=== PATIENT | female | born 1985 | race Caucasian/White ===

== ENCOUNTER → 2016-12-29 | Outpatient (CLI) | payer OTHER ==
[~2016-12-29] MED LIST: DICY20TA10 PO; IRON28TA PO; TAB-TAB PO
[2016-12-29 18:57] LABS: CHLAMYDIA PCR NOT DETECTED (NOT DETECT); NEISSERIA PCR NOT DETECTED (NOT DETECT)
[2016-12-30 10:18] LABS: RAPID PLASMA REAGIN SCREEN NON-REACTIVE (NON-REACTVE)
== END ==
LOC: CLAB 15:40
PROVIDERS: ATTEND Obstetrics & Gynecology
DX: Z11.3 Encounter for screening for infections with a predominantly sexual mode of transmission (principal)
CPT/HCPCS: 36415; 86592; 87340; 87491; 87591

== ENCOUNTER → 2017-02-02 | Outpatient (CLI) | payer OTHER ==
[2017-02-02 10:24] LABS: AUTOMATED NEUTROPHIL # 6.6 TH/MM3 (1.8-7.7); BASOPHIL % 0.4 % (0.0-2.0); EOSINOPHIL # 0.3 TH/MM3 (0-0.4); EOSINOPHIL % 2.7 % (0.0-4.0); HEMATOCRIT 39.4 % (35.0-46.0); HEMO FLAGS DIFF FINAL; LYMPH % 23.3 % (9.0-44.0); LYMPHOCYTE # 2.3 TH/MM3 (1.0-4.8); MEAN CORPUSCULAR HEMOGLOBIN 28.3 PG (27.0-34.0); MONO % 7.4 % (0.0-8.0); NEUT % 66.2 % (16.0-70.0); PLATELET COUNT 233 TH/MM3 (150-450); RED BLOOD COUNT 4.74 MIL/MM3 (4.00-5.30); RED CELL DISTRIBUTION WIDTH 13.1 % (11.6-17.2)
[2017-02-02 10:53] LABS: ALT (GPT) 45 U/L (10-53); ANION GAP 7 MEQ/L (5-15); AST (GOT) 30 U/L (15-37); BICARBONATE 28.4 MEQ/L (21.0-32.0); BLOOD UREA NITROGEN 12 MG/DL (7-18); CHLORIDE 105 MEQ/L (98-107); GLOMERULAR FILTRATION RATE 81 ML/MIN (>89); GLUCOSE,FASTING 88 MG/DL (74-99); POTASSIUM 4.1 MEQ/L (3.5-5.1); SODIUM (NA) 140 MEQ/L (136-145)
[2017-02-02 10:56] LABS: ALKALINE PHOSPHATASE 72 U/L (45-117); HDL CHOLESTEROL 75.1 MG/DL (40.0-60.0); LDL CHOLESTEROL 80 MG/DL (0-99); TOTAL BILIRUBIN ADULT 0.3 MG/DL (0.2-1.0)
== END ==
LOC: CLAB 09:53
PROVIDERS: ATTEND Family Medicine
DX: R07.9 Chest pain, unspecified (principal); R93.2 Abnormal findings on diagnostic imaging of liver and biliary tract; Z82.49 Family history of ischemic heart disease and other diseases of the circulatory system
CPT/HCPCS: 36415; 80053; 80061; 85025

== ENCOUNTER 2017-02-09 18:33 | Emergency (ER) | payer OTHER ==
[~2017-02-09] VITALS: Ht 154.9 cm; Wt 92.0 kg
[2017-02-09 18:35] VITALS: BP 146/93; PULSE 89; RESP 20; TEMP 98.1; O2SAT 99
--- NOTE | 2017-02-10 10:07 | EKG ---
Date Performed: 02/09/2017 Time Performed: 19:58:18 PTAGE: 31 years EKG: Sinus rhythm NORMAL ECG PREVIOUS TRACING : 03/26/2016 15.36 DOCTOR: Jose Rueda Interpretating Date/Time 02/10/2017 10:05:55
== END 2017-02-09 20:00 | disposition left against medical advice (07) ==
LOC: NED 20:00
DX: Z53.21 Procedure and treatment not carried out due to patient leaving prior to being seen by health care provider (principal)
CPT/HCPCS: 93005; 99281

== ENCOUNTER 2017-02-10 10:27 | Observation (INO) | payer OTHER ==
[2017-02-10] VITALS (15 sets, daily range): BP systolic 118–154; BP diastolic 63–101; PULSE 54–80; RESP 14–18; TEMP 97.4–98; O2SAT 97–100
[~2017-02-10] VITALS: Ht 154.9 cm; Wt 90.7 kg
[2017-02-10] MEDS ORDERED: SODIUM CHLOR 0.9% 1000 ML INJ 1,000 ML IV ONE (11:16)
--- NOTE | 2017-02-10 11:21 | PD ---
HPI Chief Complaint: Syncope/Near-Syncope Time Seen by Provider: 11:04 Travel History International Travel<30 days: No Contact w/Intl Traveler<30days: No Traveled to known affect area: No History of Present Illness HPI This is a 31-year-old female with a history of polycystic ovarian syndrome, and presents today with complaints of near syncopal episodes times several days. The patient has had previous hypotensive episodes in the past and was told that she had low blood pressure. She states that over the last several days she's had episodes where she becomes severely lightheaded and nearly passes out. She states it happened 3 times while [address] home yesterday. She states that she came here last night however the waiting room was full she went home. She again woke up this morning and had another episode. She denies any complete passing out she denies any chest pain chest pressure. She does state that she gets and intermittent headaches. The patient also reports right sided flank pain with radiation to her right groin intermittently. She reports it as a sharp and stabbing pain. She also gives history that she's had kidney stones on the right as well. No other complaints time of my examination. PFSH Past Medical History Asthma: Yes ( A CHILD) Cancer: No Cardiovascular Problems: Yes (MURMUR) Diabetes: No Diminished Hearing: No Endocrine: No Gastrointestinal Disorders: Yes (IBS) Genitourinary: Yes (kidney stones) Hepatitis: No Hiatal Hernia: No Immune Disorder: No Musculoskeletal: Yes (lower spine herniated spine) Neurologic: No Psychiatric: No Reproductive: Yes (irregular periods) Respiratory: Yes (asthma) Thyroid Disease: No Tetanus Vaccination: Unknown Influenza Vaccination: Yes ?: Unknown LMP: UNKNOWN : 1 Para: 1 Miscarriage: 0 : 0 Past Surgical History AICD: No Joint Replacement: No Pacemaker: No Social History Alcohol Use: Yes (occassionally ) Tobacco Use: No Substance Use: No Allergies-Medications (Allergen,Severity, Reaction): Coded Allergies: Amoxicillin (Verified Allergy, Intermediate, Rash, 02/09/17) Penicillin (Verified Allergy, Mild, RASH, 02/09/17) CILLIN FAMILY Sulfa (Verified Adverse Reaction, Intermediate, Nausea/Vomiting, 02/09/17) CAN TAKE WITH ZOFRAN pt states that sulfa is ok Reported Meds & Prescriptions Reported Meds & Active Scripts Active Reported Iron (Ferrous Sulfate) 28 Mg Tab 65 Mg PO DAILY Multivitamin (Multivitamins) 1 Tab Tab 1 Tab PO DAILY Dicyclomine 20 mg (Dicyclomine HCl) 20 Mg Tab 20 Mg PO QID Review of Systems Except as stated in HPI: all other systems reviewed are Neg General / Constitutional: No: Fever, Chills HENT: Positive: Lightheadedness, No: Headaches, Neck Pain Cardiovascular: Positive: Palpitations, No: Chest Pain or Discomfort Respiratory: No: Cough, Shortness of Breath Gastrointestinal: No: Nausea, Vomiting Genitourinary: No: Urgency, Frequency, Dysuria Musculoskeletal: Positive: Weakness (generalized) Neurologic: Positive: Weakness (Gen.), Other (near syncope), No: Dizziness Physical Exam Narrative GENERAL: Well-nourished, well-developed patient. SKIN: Warm and dry. HEAD: Normocephalic/atraumatic. EYES: No scleral icterus. No injection or drainage. NECK: Supple, trachea midline. CARDIOVASCULAR: Regular rate and rhythm without murmurs, gallops, or rubs. RESPIRATORY: Breath sounds equal bilaterally. No accessory muscle use. GASTROINTESTINAL: Abdomen soft, non-tender, nondistended. MUSCULOSKELETAL: No cyanosis, or edema. NEUROLOGICAL: Awake and alert. Cranial nerves II through XII intact. Motor grossly within normal limits. Five out of 5 muscle strength in all muscle groups. Normal speech. Data Data Last Documented VS Vital Signs Date Time Temp Pulse Resp B/P Pulse Ox O2 Delivery O2 Flow Rate FiO2 02/10/17 11:31 99 Room Air 02/10/17 10:44 80 18 128/101 02/10/17 10:28 97.4 Orders Electrocardiogram (02/10/17 ) Complete Blood Count With Diff (02/10/17 11:16) Comprehensive Metabolic Panel (02/10/17 11:16) Urinalysis - C+S If Indicated (02/10/17 11:16) Chest, Single Ap (02/10/17 11:16) Ct Brain W/O Iv Contrast(Rout) (02/10/17 11:16) Ecg Monitoring (02/10/17 11:16) Iv Access Insert/Monitor (02/10/17 11:16) Oximetry (02/10/17 11:16) Sodium Chloride 0.9% Flush (Ns Flush) (02/10/17 11:30) Sodium Chlor 0.9% 1000 Ml Inj (Ns 1000 M (02/10/17 11:16) Admit Order (Ed Use Only) (02/10/17 15:41) Labs Laboratory Tests Test 02/10/17 11:15 White Blood Count 9.0 TH/MM3 Red Blood Count 4.94 MIL/MM3 Hemoglobin 14.1 GM/DL Hematocrit 41.4 % Mean Corpuscular Volume 83.8 FL Mean Corpuscular Hemoglobin 28.6 PG Mean Corpuscular Hemoglobin 34.1 % Concent Red Cell Distribution Width 13.5 % Platelet Count 238 TH/MM3 Mean Platelet Volume 9.3 FL Neutrophils (%) (Auto) 63.9 % Lymphocytes (%) (Auto) 24.2 % Monocytes (%) (Auto) 8.4 % Eosinophils (%) (Auto) 3.1 % Basophils (%) (Auto) 0.4 % Neutrophils # (Auto) 5.8 TH/MM3 Lymphocytes # (Auto) 2.2 TH/MM3 Monocytes # (Auto) 0.8 TH/MM3 Eosinophils # (Auto) 0.3 TH/MM3 Basophils # (Auto) 0.0 TH/MM3 CBC Comment DIFF FINAL Differential Comment Urine Color YELLOW Urine Turbidity HAZY Urine pH 5.5 Urine Specific [place] 1.024 Urine Protein TRACE mg/dL Urine Glucose (UA) NEG mg/dL Urine Ketones TRACE mg/dL Urine Occult Blood NEG Urine Nitrite NEG Urine Bilirubin NEG Urine Urobilinogen LESS THAN 2.0 MG/DL Urine Leukocyte Esterase LARGE Urine RBC 2 /hpf Urine WBC 5 /hpf Urine Squamous Epithelial 5 /hpf Cells Urine Bacteria FEW /hpf Urine Mucus FEW /lpf Microscopic Urinalysis Comment CULT NOT INDICATED Sodium Level 142 MEQ/L Potassium Level 3.7 MEQ/L Chloride Level 107 MEQ/L Carbon Dioxide Level 26.2 MEQ/L Anion Gap 9 MEQ/L Blood Urea Nitrogen 10 MG/DL Creatinine 0.85 MG/DL Estimat Glomerular Filtration 79 ML/MIN Rate Random Glucose 78 MG/DL Calcium Level 9.1 MG/DL Total Bilirubin 0.4 MG/DL Aspartate Amino Transf 31 U/L (AST/SGOT) Alanine Aminotransferase 53 U/L (ALT/SGPT) Alkaline Phosphatase 74 U/L Total Protein 7.9 GM/DL Albumin 3.7 GM/DL MDM Medical Decision Making Medical Screen Exam Complete: Yes Emergency Medical Condition: Yes Differential Diagnosis Atypical migraine versus vasovagal syncope/presyncope versus pseudotumor cerebri Narrative Course 31-year-old female with history of polycystic ovarian syndrome, presents today with complaints of dizziness and blurry vision with multiple episodes of near- syncope. The patient has had several in the last 2 days. The patient had a history of hypotension in the past however according to her her blood pressure never dropped below 100 systolic. The patient's workup is essentially negative here. Given her multiple frequent episodes and no obvious findings or causes, I feel she should be admitted under observation placed on telemetry and have a neurology consult. She does state that she has blurry vision and mild headache. The case was discussed with Dr. Maddox, [facility] , who is agreed to put the patient under observation under her service. Diagnosis Primary Impression: near syncope/presyncope. Additional Impression: Polycystic ovarian syndrome Fei Packer MD Feb 10, 2017 11:21
[2017-02-10] MEDS ORDERED: SODIUM CHLORIDE 0.9% FLUSH 5 ML FLUSH IVF PRN (11:30)
[2017-02-10 11:45] LABS: AUTOMATED NEUTROPHIL # 5.8 TH/MM3 (1.8-7.7); BASOPHIL % 0.4 % (0.0-2.0); EOSINOPHIL # 0.3 TH/MM3 (0-0.4); EOSINOPHIL % 3.1 % (0.0-4.0); HEMATOCRIT 41.4 % (35.0-46.0); HEMO FLAGS DIFF FINAL; LYMPH % 24.2 % (9.0-44.0); LYMPHOCYTE # 2.2 TH/MM3 (1.0-4.8); MEAN CELL VOLUME 83.8 FL (80.0-100.0); MEAN CORPUSCULAR HEMOGLOBIN 28.6 PG (27.0-34.0); MEAN CORPUSCULAR HGB CONC 34.1 % (32.0-36.0); MONO % 8.4 % (0.0-8.0); NEUT % 63.9 % (16.0-70.0); PLATELET COUNT 238 TH/MM3 (150-450); RED BLOOD COUNT 4.94 MIL/MM3 (4.00-5.30); RED CELL DISTRIBUTION WIDTH 13.5 % (11.6-17.2)
[2017-02-10 12:01] LABS: BACTERIA, URINE FEW /hpf; BLOOD, URINE NEG (NEG); COMMENT (UR) CULT NOT INDICATED; CULTURE IF INDICATED CULT NOT INDICATED; GLUCOSE,URINE NEG (NEG); KETONE, URINE TRACE mg/dL (NEG); MUCUS URINE FEW /lpf (OCC); NITRITE,URINE NEG (NEG); PH, URINE 5.5 (5.0-8.5); SQUAMOUS EPITHELIAL CELL URINE 5 /hpf (0-5); URINE COLOR YELLOW (YELLW/STRAW)
--- NOTE | 2017-02-10 12:06 | EKG ---
Date Performed: 02/10/2017 Time Performed: 10:57:20 PTAGE: 31 years EKG: Sinus rhythm MODERATE VOLTAGE CRITERIA FOR LVH, CONSIDER NORMAL VARIANT BORDERLINE ECG PREVIOUS TRACING : 02/09/2017 19.58 DOCTOR: Jose Rueda Interpretating Date/Time 02/10/2017 12:05:22
[2017-02-10 12:11] LABS: ANION GAP 9 MEQ/L (5-15); AST (GOT) 31 U/L (15-37); BICARBONATE 26.2 MEQ/L (21.0-32.0); BLOOD UREA NITROGEN 10 MG/DL (7-18); CHLORIDE 107 MEQ/L (98-107); GLOMERULAR FILTRATION RATE 79 ML/MIN (>89); POTASSIUM 3.7 MEQ/L (3.5-5.1); SODIUM (NA) 142 MEQ/L (136-145)
[2017-02-10 12:14] LABS: ALKALINE PHOSPHATASE 74 U/L (45-117); ALT (GPT) 53 U/L (10-53); TOTAL BILIRUBIN ADULT 0.4 MG/DL (0.2-1.0)
--- NOTE | 2017-02-10 12:19 | RADRPT ---
EXAM DATE/TIME: 02/10/2017 11:28 [facility] COMPARISON: CHEST SINGLE AP, March 20, 2016, 15:59. INDICATIONS : Patient has had syncopal episodes for a week. She also states she has abdomen and lower back pain for four days. MEDICAL HISTORY : None. SURGICAL HISTORY : None. ENCOUNTER: Initial ACUITY: 1 week PAIN SCORE: 4/10 LOCATION: Bilateral L-spine. FINDINGS: A single view of the chest demonstrates the lungs to be symmetrically aerated without evidence of mas s, infiltrate or effusion. The cardiomediastinal contours are unremarkable. Osseous structures are intact. CONCLUSION: No acute disease. Casimiro Greene MD on February 10, 2017 at 12:17 Board Certified Radiologist. This report was verified electronically.
--- NOTE | 2017-02-10 14:05 | RADRPT ---
EXAM DATE/TIME: 02/10/2017 13:51 [facility] COMPARISON: CT BRAIN W/O CONTRAST, March 20, 2016, 15:50. INDICATIONS : Patient states she blacked out 3 times in 4 days RADIATION DOSE: 56.35 CTDIvol (mGy) MEDICAL HISTORY : Cardiovascular disease. Hypertension. SURGICAL HISTORY : None. ENCOUNTER: Initial ACUITY: 1 day PAIN SCALE: 3/10 LOCATION: cranial TECHNIQUE: Multiple contiguous axial images were obtained of the head. Using automated exposure control and adj ustment of the mA and/or kV according to patient size, radiation dose was kept as low as reasonably a chievable to obtain optimal diagnostic quality images. FINDINGS: CEREBRUM: The ventricles are normal for age. No evidence of midline shift, mass lesion, hemorrhage or acute in farction. No extra-axial fluid collections are seen. POSTERIOR FOSSA: The cerebellum and brainstem are intact. The 4th ventricle is midline. The cerebellopontine angle i s unremarkable. EXTRACRANIAL: The visualized portion of the orbits is intact. SKULL: The calvaria is intact. No evidence of skull fracture. CONCLUSION: No acute disease. Casimiro Greene MD on February 10, 2017 at 14:03 Board Certified Radiologist. This report was verified electronically.
[2017-02-10] MEDS ORDERED: SODIUM CHLOR 0.9% 1000 ML INJ 1,000 ML IV SCH (16:07)
[2017-02-10] MEDS ORDERED: NALOXONE HCL 0.4 MG/ML AMP IV PRN (16:15)
[2017-02-10] MEDS ORDERED: TEMAZEPAM 7.5 MG CAP PO PRN (16:15)
[2017-02-10] MEDS ORDERED: SODIUM CHLORIDE 0.9% FLUSH 10 ML FLUSH IV FLUSH PRN (16:15)
--- NOTE | 2017-02-10 16:31 | HHI.HP ---
HPI Service [facility] Primary Care Physician Sukhi Lea MD Admission Diagnosis near syncope, headach, polycystic ovarian disease Diagnoses: Chief Complaint: Near Syncope episodes Travel History International Travel<30 Days: No Contact w/Intl Traveler <30 Da: No Traveled to Known Affected Are: No History of Present Illness This 31-year-old female patient with a past medical history which includes polycystic ovarian syndrome, hypotension, childhood asthma, irritable bowel syndrome and kidney stones. Patient was seen by her primary care provider last or Thursday for follow-up of, "fatty liver," as well as evaluation of vague intermittent chest pressure. Patient reports that a week prior to her doctor's appointment she had had episodes of chest pressure not associated with exertion shortness of breath diaphoresis. Chest pressure lasting seconds to minutes described as sharp in nature. Per patient she was told to follow up with cardiology as outpatient. Patient reports that starting Thursday she has had 3 episodes of, "blacking out, " patient elaborates as near syncopal episodes described as blurry vision associated with anxiety, nausea and heart pounding. Patient reports she is usually sitting during these episodes has occurred both at rest and while driving. Patient was able to pull her car to the side of the road and the episodes resolve after, "a few minutes," with rest. Patient denies loss of consciousness, tongue biting, loss of bowel or bladder control during these episodes. Patient reports she had an EKG in her primary care provider's office which showed sinus arrhythmia. EKG revealed here reviewed and reveals sinus rhythm heart rate 69. Patient reports her last menstrual period was 3 months ago she sees Dr. Antunez [employer] [facility] for her polycystic ovarian syndrome does have to take occasionally take progesterone for induction of menses. 1 para 1, urine bedside hCG negative. Review of Systems Except as stated in HPI: all other systems reviewed are Neg Past Family Social History Past Medical History polycystic ovarian syndrome, hypotension, childhood asthma, irritable bowel syndrome and kidney stones. Past Surgical History Colonoscopy Reported Medications Iron (Ferrous Sulfate) 28 Mg Tab 65 Mg PO DAILY Multivitamin (Multivitamins) 1 Tab Tab 1 Tab PO DAILY Dicyclomine 20 mg (Dicyclomine HCl) 20 Mg Tab 20 Mg PO QID Allergies: Coded Allergies: Amoxicillin (Verified Allergy, Intermediate, Rash, 02/09/17) Penicillin (Verified Allergy, Mild, RASH, 02/09/17) CILLIN FAMILY Sulfa (Verified Adverse Reaction, Intermediate, Nausea/Vomiting, 02/09/17) CAN TAKE WITH ZOFRAN pt states that sulfa is ok Active Ordered Medications Current Medications Medications (Trade) Dose Ordered Sig/Page Route Start Time Stop Time Status Last Admin (NS Flush) 2 ml UNSCH PRN IVF 02/10/17 11:30 02/10/17 11:31 Family History Mother secondary to pancreatic and liver CA Father has history of CAD LA and coronary artery bypass graft Social History Rare EtOH use denies tobacco use or illicit drug use Physical Exam Vital Signs Vital Signs Date Time Temp Pulse Resp B/P Pulse Ox O2 Delivery O2 Flow Rate FiO2 02/10/17 14:00 80 18 154/87 99 Room Air 02/10/17 12:00 70 18 139/77 100 Room Air 02/10/17 11:31 99 Room Air 02/10/17 10:44 80 18 128/101 100 Room Air 02/10/17 10:44 18 97 Room Air 02/10/17 10:28 97.4 67 16 154/91 99 Room Air Physical Exam GENERAL: This is an obese 31-year-old female patient anxious in appearance but in no acute distress. SKIN: No rashes, ecchymoses or lesions. Cool and dry. HEAD: Atraumatic. Normocephalic. No temporal or scalp tenderness. EYES: Pupils equal round and reactive. Extraocular motions intact. No scleral icterus. No injection or drainage. ENT: Nose without bleeding, purulent drainage or septal hematoma. Throat without erythema, tonsillar hypertrophy or exudate. Uvula midline. Airway patent. NECK: Trachea midline. No JVD or lymphadenopathy. Supple, nontender, no meningeal signs. CARDIOVASCULAR: Regular rate and rhythm without murmurs, gallops, or rubs. RESPIRATORY: Clear to auscultation. Breath sounds equal bilaterally. No wheezes , rales, or rhonchi. GASTROINTESTINAL: Abdomen soft, non-tender, nondistended. No guarding. MUSCULOSKELETAL: Extremities without clubbing, cyanosis, or edema. No joint tenderness, effusion, or edema noted. No calf tenderness. Negative Homans sign bilaterally. NEUROLOGICAL: Awake and alert. No focal deficits appreciated. Motor and sensory grossly within normal limits. Five out of 5 muscle strength in all muscle groups. Normal speech. Laboratory Laboratory Tests Test 02/10/17 11:15 White Blood Count 9.0 Red Blood Count 4.94 Hemoglobin 14.1 Hematocrit 41.4 Mean Corpuscular Volume 83.8 Mean Corpuscular Hemoglobin 28.6 Mean Corpuscular Hemoglobin 34.1 Concent Red Cell Distribution Width 13.5 Platelet Count 238 Mean Platelet Volume 9.3 Neutrophils (%) (Auto) 63.9 Lymphocytes (%) (Auto) 24.2 Monocytes (%) (Auto) 8.4 Eosinophils (%) (Auto) 3.1 Basophils (%) (Auto) 0.4 Neutrophils # (Auto) 5.8 Lymphocytes # (Auto) 2.2 Monocytes # (Auto) 0.8 Eosinophils # (Auto) 0.3 Basophils # (Auto) 0.0 CBC Comment DIFF FINAL Differential Comment Urine Color YELLOW Urine Turbidity HAZY Urine pH 5.5 Urine Specific [place] 1.024 Urine Protein TRACE Urine Glucose (UA) NEG Urine Ketones TRACE Urine Occult Blood NEG Urine Nitrite NEG Urine Bilirubin NEG Urine Urobilinogen LESS THAN 2.0 Urine Leukocyte Esterase LARGE Urine RBC 2 Urine WBC 5 Urine Squamous Epithelial 5 Cells Urine Bacteria FEW Urine Mucus FEW Microscopic Urinalysis Comment CULT NOT INDICATED Sodium Level 142 Potassium Level 3.7 Chloride Level 107 Carbon Dioxide Level 26.2 Anion Gap 9 Blood Urea Nitrogen 10 Creatinine 0.85 Estimat Glomerular Filtration 79 Rate Random Glucose 78 Calcium Level 9.1 Total Bilirubin 0.4 Aspartate Amino Transf 31 (AST/SGOT) Alanine Aminotransferase 53 (ALT/SGPT) Alkaline Phosphatase 74 Total Protein 7.9 Albumin 3.7 Result Diagram: 02/10/17 1115 02/10/17 1115 Imaging Last Impressions Head CT 02/10/17 1116 Signed Impressions: Service Date/Time: Friday, February 10, 2017 13:51 - CONCLUSION: No acute disease. Casimiro Greene MD Chest X-Ray 02/10/17 1116 Signed Impressions: Service Date/Time: Friday, February 10, 2017 11:28 - CONCLUSION: No acute disease. Casimiro Greene MD Assessment and Plan Problem List: (1) Near syncope ICD Code: R55 Status: Acute (2) Chest pain ICD Code: R07.9 Status: Acute Assessment and Plan This 31-year-old female patient with a past medical history which includes polycystic ovarian syndrome, hypotension, childhood asthma, irritable bowel syndrome and kidney stones. Recurrent near near-syncope: Anxiety vs cardiac vs seizure vs hypotension Orthostatic vital signs Continuous telemetry monitoring 24-hour Holter monitor Ultrasound bilateral carotid arteries CT the head reviewed by myself as well as Dr. Maddox in no acute disease process EEG 2-D echocardiogram Chest pain: Atypical Initial EKG reviewed by myself as well as Dr. Maddox sinus rhythm heart rate [address] changes Repeat EKG in a.m. Serial troponin 3 History of kidney stones- no urinary symptoms Admitted overnight for further observation and monitoring Repeat CBC BMP in a.m., also check TSH DVT prophylaxis JULIAN yesenia and SCDs Written by Lorena Baer, acting as scribe for Dr. Maddox on 02/10/17 at 16:28. Lorena Baer Feb 10, 2017 16:31 Nguyễn Maddox MD Feb 11, 2017 07:59
[2017-02-10] MEDS: DICYCLOMINE HCL 20 MG TAB PO SCH ×2 (17:56→21:00)
--- NOTE | 2017-02-10 18:16 | RADRPT ---
EXAM DATE/TIME: 02/10/2017 17:11 [facility] COMPARISON: No previous studies available for comparison. INDICATIONS : Syncope. Blurred vision. MEDICAL HISTORY : Hypertension. Irritable bowel syndrome. Renal calculi. Heart murmur. Asthma. Irregular periods. Polyc ystic ovarian syndrome. Herniated lower spine. Anemia. SURGICAL HISTORY : Colonoscopy. ENCOUNTER: Initial ACUITY: 1 week PAIN SCORE: 3/10 LOCATION: Bilateral neck PEAK SYSTOLIC VELOCITIES (cm/sec): ICA/CCA RATIO: Right: 0.8 Left: 0.5 ICA: Right: 88 Left: 88 CCA: Right: 111 Left: 169 ECA: Right: 74 Left: 71 VERTEBRAL: Right: 62 antegrade Left: 67 antegrade Elevated flow velocities and ICA/CCA ratios have been found to correlate with increased degrees of vessel stenosis, calculated as percentage of diameter relative to a normal segment of distal ICA/CCA FINDINGS: Antegrade flow is seen in both vertebral arteries. No significant atherosclerotic plaquing is identi fied. CONCLUSION: No evidence for hemodynamically significant stenosis. Jaja Villasenor MD on February 10, 2017 at 18:14 Board Certified Radiologist. This report was verified electronically.
[2017-02-10] MEDS: ONDANSETRON HCL 4 MG/2 ML VIAL IVP PRN (20:35)
[2017-02-10] MEDS: ACETAMINOPHEN 325 MG TAB PO PRN (20:35)
[2017-02-10] MEDS: SODIUM CHLORIDE 0.9% FLUSH 10 ML FLUSH IV FLUSH SCH (21:00)
[2017-02-11] VITALS (28 sets, daily range): BP systolic 110–126; BP diastolic 67–79; PULSE 44–89; RESP 14–20; TEMP 97.8–98.8; O2SAT 95–98
[2017-02-11 05:25] LABS: BASOPHIL % 0.3 % (0.0-2.0); EOSINOPHIL # 0.3 TH/MM3 (0-0.4); EOSINOPHIL % 4.1 % (0.0-4.0); HEMATOCRIT 38.2 % (35.0-46.0); HEMO FLAGS DIFF FINAL; LYMPH % 38.6 % (9.0-44.0); LYMPHOCYTE # 3.2 TH/MM3 (1.0-4.8); MEAN CELL VOLUME 83.6 FL (80.0-100.0); MEAN CORPUSCULAR HEMOGLOBIN 28.8 PG (27.0-34.0); MEAN CORPUSCULAR HGB CONC 34.4 % (32.0-36.0); MONO % 9.3 % (0.0-8.0); NEUT % 47.7 % (16.0-70.0); PLATELET COUNT 228 TH/MM3 (150-450); RED BLOOD COUNT 4.57 MIL/MM3 (4.00-5.30); RED CELL DISTRIBUTION WIDTH 13.6 % (11.6-17.2); WHITE BLOOD COUNT 8.4 TH/MM3 (4.0-11.0)
[2017-02-11 05:51] LABS: ANION GAP 7 MEQ/L (5-15); BICARBONATE 28.4 MEQ/L (21.0-32.0); BLOOD UREA NITROGEN 10 MG/DL (7-18); CHLORIDE 106 MEQ/L (98-107); GLOMERULAR FILTRATION RATE 80 ML/MIN (>89); POTASSIUM 3.7 MEQ/L (3.5-5.1); SODIUM (NA) 141 MEQ/L (136-145)
--- NOTE | 2017-02-11 07:51 | HHI.PR ---
Subjective Remarks no acute events overnight telemetry- sinus rhythm- when sleeping- rate down to 40s- sinus patient states right lower abdominal discomfort on and off no dysruia no changes in menstrual cycles, no BM changes Objective Vitals Vital Signs Date Time Temp Pulse Resp B/P Pulse Ox O2 Delivery O2 Flow Rate FiO2 02/11/17 06:02 44 02/11/17 06:00 48 02/11/17 05:00 60 02/11/17 04:45 53 14 114/70 96 02/11/17 04:00 53 02/11/17 03:00 52 02/11/17 02:00 54 02/11/17 01:00 50 02/11/17 00:00 98.1 89 14 110/67 95 02/11/17 00:00 59 02/10/17 23:00 60 02/10/17 22:00 54 02/10/17 21:00 56 02/10/17 20:00 59 02/10/17 19:57 98.0 69 14 118/77 97 02/10/17 18:00 78 18 142/78 100 Room Air 02/10/17 17:04 77 18 142/78 02/10/17 17:03 75 18 130/63 02/10/17 17:03 74 18 133/74 02/10/17 16:14 99 21 02/10/17 16:00 66 18 130/63 99 Room Air 02/10/17 14:00 80 18 154/87 99 Room Air 02/10/17 12:00 70 18 139/77 100 Room Air 02/10/17 11:31 99 Room Air 02/10/17 10:44 80 18 128/101 100 Room Air 02/10/17 10:44 18 97 Room Air 02/10/17 10:28 97.4 67 16 154/91 99 Room Air I/O 02/10/17 02/10/17 02/10/17 02/11/17 02/11/17 02/11/17 07:00 15:00 23:00 07:00 15:00 23:00 Intake Total 240 ml Output Total 650 ml Balance -410 ml Intake Oral 240 ml IV Total 0 ml Output Urine Total 650 ml # Bowel Movements 0 Result Diagram: 02/11/17 0442 02/11/17 0442 Imaging Last Impressions Head CT 02/10/17 1116 Signed Impressions: Service Date/Time: Friday, February 10, 2017 13:51 - CONCLUSION: No acute disease. Casimiro Greene MD Chest X-Ray 02/10/17 1116 Signed Impressions: Service Date/Time: Friday, February 10, 2017 11:28 - CONCLUSION: No acute disease. Casimiro Greene MD Carotid Artery Ultrasound 02/10/17 0000 Signed Impressions: Service Date/Time: Friday, February 10, 2017 17:11 - CONCLUSION: No evidence for hemodynamically significant stenosis. Jaja Villasenor MD Objective Remarks awake and alert, oriented x 3 anicteric no bruit lungs clear regular rhythm abdomen soft, good bowel sounds, very very ild tenderness on deep palpation of right lower quadrant extremities no edema A/P Problem List: (1) Near syncope ICD Code: R55 Status: Acute (2) Chest pain ICD Code: R07.9 Status: Acute Assessment and Plan This 31-year-old female patient with a past medical history which includes polycystic ovarian syndrome, hypotension, childhood asthma, irritable bowel syndrome and kidney stones. Recurrent near-syncope: Orthostatic vital signs- negative work up in progress- EEG, echo, 24-hour Holter monitor in progress r/o arrhythmia d/w her that may need longer monitoring- home with holter monitoring if negative Head CT and carotid US negative Consult Cardiology service- for recommendation Increase activity around the room Chest pain: Atypical- troponins negative no acute STTW changes History of Recurrent/chronic abdominal pain - possible IBS/kidney stones- with right lower discomfort- recurrent check CT of abdomen/pelvis DC Bentyl- per patient does not take it History of renal stones- - per patient past- sands like- no dysuria/hematuria Increase activity as tolerated Nguyễn Maddox MD Feb 11, 2017 07:51
[2017-02-11] MEDS ORDERED: FERROUS SULFATE 65 MG PO SCH (09:00)
[2017-02-11] MEDS: SODIUM CHLORIDE 0.9% FLUSH 10 ML FLUSH IV FLUSH SCH (09:00)
--- NOTE | 2017-02-11 09:20 | EKG ---
Date Performed: 02/11/2017 Time Performed: 04:54:34 PTAGE: 31 years EKG: Sinus bradycardia with borderline 1st degree A-V block QRS changes V3/V4 may be due to LVH but cannot rule out anterior infarct Lateral T wave changes are nonspecific Abnormal ECG PREVIOUS TRACING : 02/10/2017 17.00 DOCTOR: Mihir Saldaña Interpretating Date/Time 02/11/2017 09:18:17
[2017-02-11] MEDS: FERROUS SULFATE 325 MG (65 MG ELEMENTAL IRON) TAB PO SCH (09:40)
[2017-02-11] MEDS: ACETAMINOPHEN 325 MG TAB PO PRN ×2 (09:41→22:58)
--- NOTE | 2017-02-11 10:28 | EKG ---
Date Performed: 02/10/2017 Time Performed: 17:00:18 PTAGE: 31 years EKG: Sinus rhythm MODERATE VOLTAGE CRITERIA FOR LVH, CONSIDER NORMAL VARIANT BORDERLINE ECG PREVIOUS TRACING : 02/10/2017 10.57 DOCTOR: Mihir Saldaña Interpretating Date/Time 02/11/2017 10:27:41
[2017-02-11] MEDS ORDERED: DIATRIZOATE MEGLUM/DIATRIZOATE SOD 9 ML CUP PO ONE (11:15)
[2017-02-11] MEDS: ONDANSETRON HCL 4 MG/2 ML VIAL IVP PRN ×2 (12:28→22:58)
--- NOTE | 2017-02-11 15:18 | MB ---
cc: MARTY CAMARGO DATE OF CONSULTATION: 02/11/2017 HISTORY OF PRESENT ILLNESS Ms. Perez is a 31-year-old white female with a history of polycystic ovaries, hypertension and irritable bowel syndrome. She recently had three episodes of near-syncope. She developed nausea, anxiety, palpitations, shortness of breath and mild chest discomfort. The first episode occurred while she was sitting, the other two while she was driving. She did not completely lose consciousness. She otherwise has no previous cardiac history. She has no exertional angina. She has no CHF symptoms. PAST MEDICAL HISTORY 1. Polycystic ovarian syndrome. 2. Hypertension. 3. Childhood asthma. 4. Irritable bowel syndrome. 5. Nephrolithiasis. MEDICATIONS 1. Dicyclomine. 2. Multivitamins. 3. Iron. ALLERGIES 1. SULFA. 2. PENICILLIN. 3. AMOXICILLIN. SOCIAL HISTORY The patient does not smoke. She does not drink alcohol. FAMILY HISTORY Positive for heart disease in her father. REVIEW OF SYSTEMS Otherwise negative. PHYSICAL EXAMINATION VITAL SIGNS: Blood pressure 121/57, pulse 62 and regular. HEENT: Negative. NECK: 2+ carotid upstrokes. No bruits. LUNGS: Clear. HEART: Regular with no murmur or gallop. ABDOMEN: Soft. No bruit. EXTREMITIES: Without edema. 2+ distal pulses. NEUROLOGIC: Grossly intact. EKG EKG was reviewed and showed normal sinus rhythm with normal axis and interval. No acute changes. LABORATORY Hemoglobin 13.1. Potassium 3.7. Creatinine 0.8. Troponin negative x3. TSH 1.7. AST and ALT normal. DIAGNOSIS 1. Near-syncope. 2. Atypical chest pain. 3. Polycystic ovarian syndrome. 4. Irritable bowel syndrome. 5. Nephrolithiasis. DISPOSITION Ms. Perez will be monitored on telemetry. We will obtain an echocardiogram to evaluate her left ventricular function. She is undergoing neurologic evaluation including EEG to evaluate for seizures. I will follow her for cardiology during her hospitalization. I will also see her back for follow-up in our office after discharge. She will not be able to drive until further notice. MD MARY BETH Santos/ITZ /2:26 PM /3:05 PM MTDD
--- NOTE | 2017-02-11 17:46 | RADRPT ---
EXAM DATE/TIME: 02/11/2017 17:16 [facility] COMPARISON: No previous studies available for comparison. INDICATIONS : Right lower abdomen pain for a few days. ORAL CONTRAST: Prescribed oral contrast ingested. RADIATION DOSE: 11.45 CTDIvol (mGy) MEDICAL HISTORY : None SURGICAL HISTORY : None. ENCOUNTER: Initial ACUITY: 2 days PAIN SCALE: 5/10 LOCATION: Right Abdomen TECHNIQUE: Volumetric scanning of the abdomen and pelvis was performed. Using automated exposure control and ad justment of the mA and/or kV according to patient size, radiation dose was kept as low as reasonably achievable to obtain optimal diagnostic quality images. FINDINGS: LOWER LUNGS: The visualized lower lungs are clear. LIVER: Homogeneous density without lesion. There is no dilation of the biliary tree. No calcified gallston es. SPLEEN: Normal size without lesion. PANCREAS: Within normal limits. KIDNEYS: Normal in size and shape. There is no mass, stone, or hydronephrosis. ADRENAL GLANDS: Within normal limits. VASCULAR: There is no aortic aneurysm. BOWEL/MESENTERY: The stomach, small bowel, and colon demonstrate no acute abnormality. There is no free intraperitone al air or fluid. ABDOMINAL WALL: Within normal limits. RETROPERITONEUM: There is no lymphadenopathy. BLADDER: No wall thickening or mass. REPRODUCTIVE: Within normal limits. INGUINAL: There is no lymphadenopathy or hernia. MUSCULOSKELETAL: Within normal limits for patient age. CONCLUSION: No acute CT findings in the abdomen or pelvis Yifan Mtz MD on February 11, 2017 at 17:41 Board Certified Radiologist. This report was verified electronically.
--- NOTE | 2017-02-11 21:03 | EC ---
Study Study Date:02/11/2017 STUDY CONCLUSIONS SUMMARY - Left ventricle: The cavity size was normal. Wall thickness was normal. Systolic function was normal. The estimated ejection fraction was 65%. Wall motion was normal; there were no regional wall motion abnormalities. - Tricuspid valve: Mild regurgitation. If LV function is below 40, please consider prescribing an ACEI or ARB or document rationale for non-use. PROCEDURE DATA STUDY STATUS: Elective. Procedure: Transthoracic echocardiography. Image quality was good. Scanning was performed from the parasternal, apical, and subcostal acoustic windows. Study completion: The patient tolerated the procedure well. Transthoracic echocardiography. M-mode, complete 2D, complete spectral Doppler, and color Doppler. Height: Height: 61in. Weight: Weight: 198.6lb. Body mass index: BMI: 37.6kg/m^2. Body surface area: BSA: 1.89m^2. Patient status: Inpatient. CARDIAC ANATOMY LEFT VENTRICLE: The cavity size was normal. Wall thickness was normal. Systolic function was normal. The estimated ejection fraction was 65%. Wall motion was normal; there were no regional wall motion abnormalities. AORTIC VALVE: Trileaflet; normal thickness leaflets. Doppler: Transvalvular velocity was within the normal range. There was no stenosis. No regurgitation. Valve area: 2.71cm^2 (Vmax). Indexed valve area: 1.43cm^2/m^2 (Vmax). Peak gradient: 12mm Hg (S). AORTA: Aortic root: The aortic root was normal in size. MITRAL VALVE: Structurally normal valve. Doppler: Transvalvular velocity was within the normal range. There was no evidence for stenosis. No regurgitation. Valve area by pressure half-time: 4.15cm^2. Indexed valve area by pressure half-time: 2.2cm^2/m^2. Peak gradient: 5mm Hg (D). LEFT ATRIUM: The atrium was normal in size. RIGHT VENTRICLE: The cavity size was normal. Wall thickness was normal. PULMONIC VALVE: Doppler: Transvalvular velocity was within the normal range. There was no evidence for stenosis. No regurgitation. TRICUSPID VALVE: Structurally normal valve. Doppler: Transvalvular velocity was within the normal range. Mild regurgitation. PULMONARY ARTERY: The main pulmonary artery was normal-sized. Systolic pressure was within the normal range. RIGHT ATRIUM: The atrium was normal in size. PERICARDIUM: There was no pericardial effusion. SYSTEMIC VEINS: Inferior vena cava: The vessel was normal in size. Patient weight: 198.6lb _Ejection fraction:_ 65-75% _Fractional shortening:_ 32% up to 5Kg 5-11.5Kg 11.6-22.9Kg 23-45Kg 45-57Kg Aortic Root 7-13 <17 13-22 17-27 17-27 LA diam 6-13 <23 24-38 33-47 37-40 RVID 10-17 7-15 7-15 7-18 8-17 LVIDd 12-22 <32 24-38 33-47 37-40 LVPW 2-4 3-6 5-7 6-8 7-8 IVS 2-4 3-6 5-7 6-8 7-8 BASIC MEASUREMENTS ADULT NORMAL Left ventricle LV internal dimension, ED, chordal 50.3 mm 43-52 level, PLAX LV internal dimension, ES, chordal 29.2 mm 23-38 level, PLAX Fractional shortening, chordal level, 42 % >29 PLAX LV posterior wall thickness, ED 8.52 mm IVS/LVPW ratio, ED 1 <1.3 Ventricular septum Septal thickness, ED 8.56 mm Aortic valve Leaflet separation 19 mm 15-26 Left atrium Anterior-posterior dimension 31 mm Anterior-posterior dimension index 1.64 cm/m^2 <2.2 Right ventricle RV internal dimension, ED, PLAX 30.2 mm 19-38 BASIC MEASUREMENTS ADULT NORMAL Aortic valve Leaflet separation 19 mm 15-26 Aorta Root diameter, ED 29 mm 20-37 DOPPLER MEASUREMENTS ADULT NORMAL Main pulmonary artery Pressure, S 26 mm Hg =30 Aortic valve Peak velocity, S 174 cm/s Peak gradient, S 12 mm Hg Valve area, Vmax 2.71 cm^2 Valve area index, Vmax 1.43 cm^2/m^2 Mitral valve Peak E-wave velocity 116 cm/s Peak A-wave velocity 56.8 cm/s Pressure half-time 53 ms Peak gradient, D 5 mm Hg Peak E/A ratio 2 Valve area, pressure half-time 4.15 cm^2 Valve area index, pressure half-time 2.2 cm^2/m^2 Tricuspid valve Regurgitant peak velocity 219 cm/s Peak RV-RA gradient, S 19 mm Hg Systemic veins Estimated CVP 10 mm Hg Right ventricle RV pressure, S 29 mm Hg <30 Pulmonic valve Peak velocity, S 90.9 cm/s LEGEND: Mean values are shown as u=mean value. Asterisk (*) underwood values outside specified normal range. Prepared and signed by Keanu Luther [id number]
--- NOTE | 2017-02-11 21:56 | MG ---
cc: JOSE RUSHING MD Lab No: Date: 02/11/2017 Age: Sex: F Race: EEG NUMBER [id number] DATE OF 1985 INDICATION A 31-year-old with a history of asthma and hypertension. Syncopal episodes, headaches. DESCRIPTION Posterior rhythm demonstrates well-formed alpha activity to 10 Hz, 20-40 microvolts, low amplitude beta in the frontal channels. Good anterior to posterior rhythm. Very minimal myogenic artifact in the frontal channels. Reasonable driving with photic stimulation. Single lead EKG showing sinus rhythm. Good effort with hyperventilation. INTERPRETATION Normal awake EEG. Clinical correlation. Jose Rushing MD MG/KK /9:15 PM /9:43 PM
[2017-02-11 22:41] LABS: BETA HCG QUANT LESS THAN 1 MIU/ML (0-5)
[2017-02-12] VITALS (13 sets, daily range): BP systolic 117–127; BP diastolic 66–84; PULSE 52–90; RESP 16; TEMP 97.9–98.2; O2SAT 96–97
--- NOTE | 2017-02-12 07:33 | HHI.PR ---
Subjective Remarks in SR- no chest pains, abdominal pain, nausea or vomiting patient up and ambulating, brief episodes "seconds" of dizziness" very interactive- goes to school, works at night and has a baby- "very delightful" denies any stress Objective Vitals Vital Signs Date Time Temp Pulse Resp B/P Pulse Ox O2 Delivery O2 Flow Rate FiO2 02/12/17 06:00 58 02/12/17 05:00 52 02/12/17 04:00 64 02/12/17 03:00 98.0 54 16 118/69 97 02/12/17 03:00 60 02/12/17 02:00 61 02/12/17 01:00 67 02/12/17 00:00 98.2 65 16 123/66 96 02/12/17 00:00 52 02/11/17 23:00 66 02/11/17 22:00 68 02/11/17 21:00 82 02/11/17 20:00 73 02/11/17 20:00 98.4 85 16 126/77 98 02/11/17 19:00 Room Air 98 02/11/17 19:00 74 02/11/17 18:00 78 02/11/17 17:00 58 02/11/17 16:00 60 02/11/17 15:00 98.8 78 20 111/79 98 02/11/17 15:00 63 02/11/17 14:00 58 02/11/17 13:00 62 02/11/17 12:00 62 02/11/17 11:15 18 02/11/17 11:13 98.4 62 16 121/67 97 02/11/17 11:00 57 02/11/17 10:00 64 02/11/17 09:00 54 02/11/17 09:00 54 02/11/17 08:08 98 21 02/11/17 08:00 64 02/11/17 08:00 64 I/O 02/11/17 02/11/17 02/11/17 02/12/17 02/12/17 02/12/17 07:00 15:00 23:00 07:00 15:00 23:00 Intake Total 240 ml 1000 ml 460 ml Output Total 650 ml 650 ml 1500 ml 525 ml Balance -410 ml -650 ml -500 ml -65 ml Intake Oral 240 ml 1000 ml 460 ml IV Total 0 ml Output Urine Total 650 ml 650 ml 1500 ml 525 ml # Bowel Movements 0 0 0 0 Result Diagram: 02/11/172 02/11/17 0442 Imaging Last Impressions Abdomen/Pelvis CT 02/11/17 0000 Signed Impressions: Service Date/Time: Saturday, February 11, 2017 17:16 - CONCLUSION: No acute CT findings in the abdomen or pelvis Yifan Mtz MD Head CT 02/10/17 1116 Signed Impressions: Service Date/Time: Friday, February 10, 2017 13:51 - CONCLUSION: No acute disease. Casimiro Greene MD Chest X-Ray 02/10/17 1116 Signed Impressions: Service Date/Time: Friday, February 10, 2017 11:28 - CONCLUSION: No acute disease. Casimiro Greene MD Carotid Artery Ultrasound 02/10/17 0000 Signed Impressions: Service Date/Time: Friday, February 10, 2017 17:11 - CONCLUSION: No evidence for hemodynamically significant stenosis. Jaja Villasenor MD Objective Remarks awake and alert, oriented x 3, interactive anicteric no bruit lungs clear regular rhythm abdomen soft, good bowel sounds extremities no edema neuro exam- unremarkable A/P Problem List: (1) Near syncope ICD Code: R55 Status: Acute (2) Chest pain ICD Code: R07.9 Status: Acute Assessment and Plan This 31-year-old female patient with a past medical history which includes polycystic ovarian syndrome, hypotension, childhood asthma, irritable bowel syndrome and kidney stones. Recurrent near-syncope: work up in progress- telemetry- shows occasional rate in the 40-50s Orthostatic vital signs- negative Echo,Carotis US negative Head CT, EEG negative HOlter in progress- will ff up final report Dr. Luther from Cardiology ff Chest pain: Atypical- troponins negative- no further episodes History of Recurrent/chronic abdominal pain - told she has IBS- no pain here- Abdominal CT negative History of renal stones- - per patient past- sands like- no dysuria/hematuria- no episodes here- CT no mass, no stones activity as tolerated- patient up and ambulating add 230 pm cleared for DC diet regular home today FF up with PCP FF up with Dr. luther as OP no driving, weightbearing activity as tolerated ff up with PCP Nguyễn Maddox MD Feb 12, 2017 07:33
[2017-02-12] MEDS: SODIUM CHLORIDE 0.9% FLUSH 10 ML FLUSH IV FLUSH SCH (08:10)
[2017-02-12] MEDS: FERROUS SULFATE 325 MG (65 MG ELEMENTAL IRON) TAB PO SCH (08:10)
--- NOTE | 2017-02-12 14:06 | PD.CARD.PN ---
Subjective Subjective Remarks No CP or SOB, mild dizziness, no underlying arrhythmias Objective Medications Current Medications Medications (Trade) Dose Ordered Sig/Page Route Start Time Stop Time Status Last Admin (NS Flush) 2 ml UNSCH PRN IV FLUSH 02/10/17 16:15 02/11/17 22:58 (NS Flush) 2 ml BID IV FLUSH 02/10/17 21:00 02/12/17 08:10 (Tylenol) 650 mg Q4H PRN PO 02/10/17 16:15 02/11/17 22:58 (Zofran Inj) 4 mg Q6H PRN IVP 02/10/17 16:15 02/11/17 22:58 (Narcan Inj) 0.4 mg UNSCH PRN IV 02/10/17 16:15 (Restoril) 7.5 mg HS PRN PO 02/10/17 16:15 (Ferrous Sulfate) 325 mg DAILY PO 02/11/17 09:00 02/11/17 09:40 Vital Signs / I&O Vital Signs Date Time Temp Pulse Resp B/P Pulse Ox O2 Delivery O2 Flow Rate FiO2 02/12/17 12:00 97.9 72 16 127/71 97 02/12/17 12:00 90 02/12/17 11:00 72 02/12/17 10:00 64 02/12/17 09:00 74 02/12/17 08:00 68 02/12/17 08:00 97.9 64 16 117/84 97 02/12/17 07:32 Room Air 02/12/17 07:00 56 02/12/17 06:00 58 02/12/17 05:00 52 02/12/17 04:00 64 02/12/17 03:00 98.0 54 16 118/69 97 02/12/17 03:00 60 02/12/17 02:00 61 02/12/17 01:00 67 02/12/17 00:00 98.2 65 16 123/66 96 02/12/17 00:00 52 02/11/17 23:00 66 02/11/17 22:00 68 02/11/17 21:00 82 02/11/17 20:00 73 02/11/17 20:00 98.4 85 16 126/77 98 02/11/17 19:00 Room Air 98 02/11/17 19:00 74 02/11/17 18:00 78 02/11/17 17:00 58 02/11/17 16:00 60 02/11/17 15:00 98.8 78 20 111/79 98 02/11/17 15:00 63 I/O 02/11/17 02/11/17 02/11/17 02/12/17 02/12/17 02/12/17 07:00 15:00 23:00 07:00 15:00 23:00 Intake Total 240 ml 1000 ml 460 ml Output Total 650 ml 650 ml 1500 ml 525 ml Balance -410 ml -650 ml -500 ml -65 ml Intake Oral 240 ml 1000 ml 460 ml IV Total 0 ml Output Urine Total 650 ml 650 ml 1500 ml 525 ml # Bowel Movements 0 0 0 0 Physical Exam GENERAL: SKIN: Warm and dry. HEAD: Normocephalic. EYES: No scleral icterus. No injection or drainage. NECK: Supple, trachea midline. No JVD or lymphadenopathy. CARDIOVASCULAR: Regular rate and rhythm without murmurs, gallops, or rubs. RESPIRATORY: Breath sounds equal bilaterally. No accessory muscle use. GASTROINTESTINAL: Abdomen soft, non-tender, nondistended. MUSCULOSKELETAL: No cyanosis, or edema. Laboratory Laboratory Tests Test 02/10/17 02/10/17 02/11/17 11:15 22:44 04:42 Urine Color YELLOW Urine Turbidity HAZY Urine pH 5.5 Urine Specific [place] 1.024 Urine Protein TRACE mg/dL Urine Glucose (UA) NEG mg/dL Urine Ketones TRACE mg/dL Urine Occult Blood NEG Urine Nitrite NEG Urine Bilirubin NEG Urine Urobilinogen LESS THAN 2.0 MG/DL Urine Leukocyte Esterase LARGE Urine RBC 2 /hpf Urine WBC 5 /hpf Urine Squamous Epithelial 5 /hpf Cells Urine Bacteria FEW /hpf Urine Mucus FEW /lpf Microscopic Urinalysis Comment CULT NOT INDICATED Total Bilirubin 0.4 MG/DL Aspartate Amino Transf 31 U/L (AST/SGOT) Alanine Aminotransferase 53 U/L (ALT/SGPT) Alkaline Phosphatase 74 U/L Total Protein 7.9 GM/DL Albumin 3.7 GM/DL Thyroid Stimulating Hormone 1.720 uIU/ML 3rd Gen White Blood Count 8.4 TH/MM3 Red Blood Count 4.57 MIL/MM3 Hemoglobin 13.1 GM/DL Hematocrit 38.2 % Mean Corpuscular Volume 83.6 FL Mean Corpuscular Hemoglobin 28.8 PG Mean Corpuscular Hemoglobin 34.4 % Concent Red Cell Distribution Width 13.6 % Platelet Count 228 TH/MM3 Mean Platelet Volume 9.1 FL Neutrophils (%) (Auto) 47.7 % Lymphocytes (%) (Auto) 38.6 % Monocytes (%) (Auto) 9.3 % Eosinophils (%) (Auto) 4.1 % Basophils (%) (Auto) 0.3 % Neutrophils # (Auto) 4.0 TH/MM3 Lymphocytes # (Auto) 3.2 TH/MM3 Monocytes # (Auto) 0.8 TH/MM3 Eosinophils # (Auto) 0.3 TH/MM3 Basophils # (Auto) 0.0 TH/MM3 CBC Comment DIFF FINAL Differential Comment Sodium Level 141 MEQ/L Potassium Level 3.7 MEQ/L Chloride Level 106 MEQ/L Carbon Dioxide Level 28.4 MEQ/L Anion Gap 7 MEQ/L Blood Urea Nitrogen 10 MG/DL Creatinine 0.84 MG/DL Estimat Glomerular Filtration 80 ML/MIN Rate Random Glucose 86 MG/DL Calcium Level 8.5 MG/DL Troponin I LESS THAN 0.02 NG/ML Human Chorionic Gonadotropin, LESS THAN 1 Quant MIU/ML Imaging Last Impressions Abdomen/Pelvis CT 02/11/17 0000 Signed Impressions: Service Date/Time: Saturday, February 11, 2017 17:16 - CONCLUSION: No acute CT findings in the abdomen or pelvis Yifan Mtz MD Head CT 02/10/17 1116 Signed Impressions: Service Date/Time: Friday, February 10, 2017 13:51 - CONCLUSION: No acute disease. Casimiro Greene MD Chest X-Ray 02/10/17 1116 Signed Impressions: Service Date/Time: Friday, February 10, 2017 11:28 - CONCLUSION: No acute disease. Casimiro Greene MD Carotid Artery Ultrasound 02/10/17 0000 Signed Impressions: Service Date/Time: Friday, February 10, 2017 17:11 - CONCLUSION: No evidence for hemodynamically significant stenosis. Jaja Villasenor MD Assessment and Plan Problem List: (1) Near syncope (2) Chest pain (3) Polycystic ovarian syndrome Assessment and Plan Echo w nl LV fx. Tele w no sig arrhythmias. EEG nl. DC home. F/u w me as outpatient. Can return back to work, but no driving until further notice. Keanu Luther MD Feb 12, 2017 14:05
--- NOTE | 2017-02-14 11:36 | HM ---
Date Performed: 02/10/2017 Time Performed: 20:23:00 HOOKUP DATE: 02/10/17 08:23:00 PM Tue ANALYSIS START TIME: 02/10/2017 8:28:00 PM ANALYSIS END TIME: 02/11/2017 8:32:00 PM PATIENT AGE: 31 PATIENT HEIGHT PATIENT WEIGHT DRUG LIST PATIENT DIAGNOSIS: NEAR SYNCOPE TEST NARRATIVE: The patient's average heart rate was 66 BPM. Heart rates greater than 120 B PM were noted 1% of the time. Heart rates less than 50 BPM were noted 8% of the time. No pauses exceeding 2.0 seconds were noted. No ventricular ectopics were noted. No supraventricular ect opics were noted. No episodes of ST depression (defined as -1.0 mm or more) were noted in channel 1. No episodes of ST depression (defined as -1.0 mm or more) were noted in channel 2. No episodes of ST depression (defined as -1.0 mm or more) were noted in channel 3. TEST INTERPRETATION: Sinus rhythm A short episode of sinus tachycardia around 18:17 No pause No ventricualr tachycardia observed There was no entry in the diary Signed by : Alejandrina Aceves
== END 2017-02-12 14:20 | disposition home or self-care (01) ==
LOC: NEPE 10:27 → NEDA 15:43 → HCIS 19:10 → UNDODISOB 02-12 14:20
PROVIDERS: ADMIT Internal Medicine; ATTEND Internal Medicine
DX: R55 Syncope and collapse (principal); R07.89 Other chest pain; E28.2 Polycystic ovarian syndrome; K58.9 Irritable bowel syndrome, unspecified; J45.909 Unspecified asthma, uncomplicated; I10 Essential (primary) hypertension; Z87.442 Personal history of urinary calculi; Z88.1 Allergy status to other antibiotic agents; Z88.0 Allergy status to penicillin; Z88.2 Allergy status to sulfonamides
CPT/HCPCS: 70450; 71010; 74176; 80048; 80053; 81001; 84443; 84484; 84702; 85025; 93005; 93225; 93226; 93306; 93880; 95819; 96360; G0378; J2405; J7030; Q9963

== ENCOUNTER → 2017-04-07 | Outpatient (CLI) | payer OTHER ==
[2017-04-08 10:11] LABS: RAPID PLASMA REAGIN SCREEN NON-REACTIVE (NON-REACTVE)
== END ==
LOC: CLAB 15:23
PROVIDERS: ATTEND Obstetrics & Gynecology
DX: Z11.3 Encounter for screening for infections with a predominantly sexual mode of transmission (principal)
CPT/HCPCS: 36415; 86592; 86703; 87340

== ENCOUNTER → 2017-09-15 | Outpatient (CLI) | payer OTHER ==
[2017-09-15 11:38] LABS: RHEUMATOID FACTOR TRIGGER LESS THAN 10.0 IU/ML (0.0-14.9)
[2017-09-15 11:43] LABS: INDIRECT BILIRUBIN 0.3 MG/DL (0.0-0.8); TOTAL BILIRUBIN ADULT 0.4 MG/DL (0.2-1.0)
[2017-09-17 13:52] LABS: SM ANTIBODY <1.0 NEG AI (<1.0 NEGATIVE); SM/RNP ANTIBODY <1.0 NEG AI (<1.0 NEGATIVE)
== END ==
LOC: CLAB 10:03
PROVIDERS: ATTEND Internal Medicine Rheumatology
DX: R79.89 Other specified abnormal findings of blood chemistry (principal); M06.4 Inflammatory polyarthropathy
CPT/HCPCS: 36415; 80076; 85652; 86140; 86200; 86225; 86235; 86430

== ENCOUNTER → 2017-10-08 | Outpatient (CLI) | payer OTHER ==
[2017-10-08 12:47] LABS: BETA HCG QUANT LESS THAN 1 MIU/ML (0-5)
== END ==
LOC: CLAB 12:03
PROVIDERS: ATTEND Obstetrics & Gynecology
DX: R63.5 Abnormal weight gain (principal); Z11.3 Encounter for screening for infections with a predominantly sexual mode of transmission
CPT/HCPCS: 36415; 84443; 84702; 86592; 86703; 87340